=== PATIENT | female | born 1970 | race Caucasian/White ===

== ENCOUNTER 2019-07-16 12:48 | Emergency (ER) | payer OTHER ==
--- NOTE | 2019-07-16 13:01 | PDOC ---
Rapid Medical Evaluation Chief Complaint: Pain Time Seen by Provider: 07/16/19 12:59 Medical Evaluation: 07/16/19 12:59 I have performed a brief in-person evaluation of this patient. The patient presents with a chief complaint of: back pain, LLQ abd pain Pertinent physical exam findings: uncomfortable appearing, LLQ tenderness I have ordered the following: labs, urine The patient will proceed to the ED for further evaluation. Discharge Disposition - Diagnosis Abdominal pain, Back pain - Referrals - Patient Instructions - Post Discharge Activity
[2019-07-16 13:02] VITALS: TEMP 98.9; BMI 26.6
[2019-07-16 15:14] LABS: BASO % 1.3 % (0-2.0); EOS % 0.6 % (0-4.5); HEMOGLOBIN 14.7 GM/dL (10.7-15.3); LYMPH % 18.3 % (8-40); MCH 28.9 pg (25.7-33.7); MCHC 34.1 g/dl (32.0-36.0); MEAN CELL VOLUME 84.7 fl (80-96); MEAN PLT VOLUME 8.8 fl (7.5-11.1); MONO % 5.6 % (3.8-10.2); NEUT % 74.2 % (42.8-82.8); PLATELET COUNT 333 K/MM3 (134-434); RBC 5.08 M/mm3 (3.60-5.2); RDW 13.7 % (11.6-15.6); WHITE BLOOD COUNT 14.9 K/mm3 (4.0-10.0)
[2019-07-16 15:18] LABS: EPI CELLS 0.9 /HPF (0-5/HPF); HYALINE CASTS 1 /lpf (0-8); URINE APPEARANCE CLEAR; URINE BACTERIA 4.1 /hpf (NEGATIVE); URINE BILIRUBIN NEGATIVE (NEGATIVE); URINE COLOR YELLOW; URINE GLUCOSE (UA) NEGATIVE (NEGATIVE); URINE KETONE TRACE (NEGATIVE); URINE LEUK ESTERASE NEGATIVE (NEGATIVE); URINE NITRITE NEGATIVE (NEGATIVE); URINE PROTEIN NEGATIVE (NEGATIVE); URINE RBC 6 /hpf (0-4); URINE UROBILINOGEN 0.2 mg/dL (0.2-1.0); URINE WBC 0 /hpf (0-5)
[2019-07-16 15:39] LABS: ALBUMIN 3.8 g/dl (3.4-5.0); BILIRUBIN,TOTAL 0.7 mg/dL (0.2-1); BLOOD UREA NITROGEN 9.7 mg/dL (7-18); CALCIUM 9.2 mg/dL (8.5-10.1); CREATININE 0.7 mg/dL (0.55-1.3); TOT PROT 7.7 g/dl (6.4-8.2)
--- NOTE | 2019-07-16 18:24 | PDOC ---
History of Present Illness - General Chief Complaint: Pain Stated Complaint: LOWER BACK PAIN Time Seen by Provider: 07/16/19 12:59 History Source: Patient Exam Limitations: No Limitations - History of Present Illness Travel History: No Initial Comments: 07/16/19 17:19 49 y/o female presents to ED with complaints of left lower quadrant pain radiating to her left back for the past month. Patient denies fever, chills, nausea, vomiting but states intermittent constipation and mild dysuria. Patient states history of 2 Herniated disc in her lumbar region and states she believes the pain is from her back Timing/Duration: reports: intermittent Quality: reports: moderate, cramping Abdominal Pain Onset Location: reports: LLQ Pain Radiation: reports: flank, back Activities at Onset: reports: none Aggravating Factors: improves with: Movement Alleviating Factors: improves with: None Past History - Travel Traveled outside of the country in the last 30 days: No Close contact w/someone who was outside of country & ill: No - Past Medical History Allergies/Adverse Reactions: Allergies Allergy/AdvReac Type Severity Reaction Status Date / Time ibuprofen [From Advil] Allergy Verified 07/16/19 13:02 COPD: No - Surgical History Abdominal Surgery: Yes (hernia) - Suicide/Smoking/Psychosocial Hx Smoking History: Never smoked Information on smoking cessation initiated: No Hx Alcohol Use: No Drug/Substance Use Hx: No Patient Lives Alone: No Lives with/in: spouse/SO Abd/GI Specific PMHX - Complaint Specific PMHX Colitis: No Diverticulitis: No Review of Systems - Review of Systems Able to Perform ROS?: Yes Constitutional: No: Symptoms Reported HEENTM: No: Symptoms Reported Respiratory: No: Symptoms reported Cardiac (ROS): No: Symptoms Reported ABD/GI: Yes: Abdominal cramping : No: Symptoms Reported Musculoskeletal: Yes: Back Pain Integumentary: No: Symptoms Reported Neurological: No: Symptoms reported Endocrine: No: Symptoms Reported Hematologic/Lymphatic: No: Symptoms Reported *Physical Exam - Vital Signs Last Vital Signs Temp Pulse Resp BP Pulse Ox 98.9 F 72 19 121/74 97 07/16/19 12:59 07/16/19 12:59 07/16/19 12:59 07/16/19 12:59 07/16/19 12:59 - Physical Exam General Appearance: Yes: Nourished, Appropriately Dressed. No: Apparent Distress Neck: positive: Supple. negative: Tender midline Respiratory/Chest: positive: Lungs Clear, Normal Breath Sounds. negative: Chest Tender, Respiratory Distress, Accessory Muscle Use Cardiovascular: positive: Regular Rhythm, Regular Rate. negative: Murmur Gastrointestinal/Abdominal: positive: Normal Bowel Sounds, Soft, Tenderness ( left upper quadrant left flank left lower quadrant mild left suprapubic). negative: Distended, Guarding, Rebound, Hernia, Mass Musculoskeletal: negative: CVA Tenderness Extremity: positive: Normal Inspection Integumentary: positive: Normal Color, Warm Neurologic: positive: Motor Strength 5/5 (ambulatory) ED Treatment Course - LABORATORY CBC & Chemistry Diagram: 07/16/19 15:00 07/16/19 15:00 - ADDITIONAL ORDERS Additional order review: Laboratory Results 07/16/19 07/16/19 07/16/19 15:08 15:00 15:00 Sodium 137 Potassium 4.0 Chloride 102 Carbon Dioxide 25 Anion Gap 11 BUN 9.7 Creatinine 0.7 Est GFR (CKD-EPI)AfAm 117.91 Est GFR (CKD-EPI)NonAf 101.74 Random Glucose 88 Calcium 9.2 Total Bilirubin 0.7 AST 17 ALT 22 Alkaline Phosphatase 73 Total Protein 7.7 Albumin 3.8 Lipase 82 Serum , Qual Negative Urine Color Yellow Urine Appearance Clear Urine pH 5.0 Ur Specific [place] 1.017 Urine Protein Negative Urine Glucose (UA) Negative Urine Ketones Trace H Urine Blood Trace Urine Nitrite Negative Urine Bilirubin Negative Urine Urobilinogen 0.2 Ur Leukocyte Esterase Negative Urine WBC (Auto) 0 Urine RBC (Auto) 6 Urine Casts (Auto) 1 U Epithel Cells (Auto) 0.9 Urine Bacteria (Auto) 4.1 07/16/19 15:00 RBC 5.08 MCV 84.7 MCHC 34.1 RDW 13.7 MPV 8.8 Neutrophils % 74.2 Lymphocytes % 18.3 Monocytes % 5.6 Eosinophils % 0.6 Basophils % 1.3 - RADIOLOGY Radiology Studies Ordered: Category Date Time Status ABDOMEN & PELVIS CT W/O CONTR [CT] Stat CT Scan 07/16/19 17:22 Ordered - Medications Given in the ED: ED Medications Discontinued Medications Generic Name Dose Route Start Last Admin Trade Name Freq PRN Reason Stop Dose Admin Oxycodone/Acetaminophen 1 combo 07/16/19 17:22 07/16/19 17:25 Percocet 5/325 - PO 07/16/19 17:23 1 combo ONCE ONE Administration Medical Decision Making - Medical Decision Making 07/16/19 17:24 Chief complaint: Left abdominal pain for the past month worsened with movement patient has no complaints of saddle anesthesia or incontinence but does state intermittent constipation and mild dysuria. Exam: Left suprapubic discomfort radiating to left flank and left upper quadrant region vital signs stable Plan: Labs done in [facility] urine collected will add on abdominal CT and serum since patient still menstruate 07/16/19 18:26 Laboratory Tests 07/16/19 07/16/19 07/16/19 15:00 15:00 15:00 WBC 14.9 H Hgb 14.7 Hct 43.0 Absolute Neuts (auto) 11.1 H Sodium 137 Potassium 4.0 Chloride 102 Carbon Dioxide 25 Anion Gap 11 Calcium 9.2 Total Bilirubin 0.7 AST 17 ALT 22 Alkaline Phosphatase 73 Total Protein 7.7 Albumin 3.8 Lipase 82 Serum , Qual Urine Ketones Trace H Urine Nitrite Negative Urine Bilirubin Negative Ur Leukocyte Esterase Negative 07/16/19 15:08 WBC Hgb Hct Absolute Neuts (auto) Sodium Potassium Chloride Carbon Dioxide Anion Gap Calcium Total Bilirubin AST ALT Alkaline Phosphatase Total Protein Albumin Lipase Serum , Qual Negative Urine Ketones Urine Nitrite Urine Bilirubin Ur Leukocyte Esterase *DC/Admit/Observation/Transfer Diagnosis at time of Disposition: Abdominal pain, Back pain - Referrals - Patient Instructions - Post Discharge Activity
--- NOTE | 2019-07-16 20:36 | PDOC ---
*Physical Exam - Vital Signs Last Vital Signs Temp Pulse Resp BP Pulse Ox 98.9 F 72 19 121/74 97 07/16/19 12:59 07/16/19 12:59 07/16/19 12:59 07/16/19 12:59 07/16/19 12:59 - Physical Exam General Appearance: Yes: Appropriately Dressed ED Treatment Course - LABORATORY CBC & Chemistry Diagram: 07/16/19 15:00 07/16/19 15:00 - ADDITIONAL ORDERS Additional order review: Laboratory Results 07/16/19 07/16/19 07/16/19 15:08 15:00 15:00 Sodium 137 Potassium 4.0 Chloride 102 Carbon Dioxide 25 Anion Gap 11 BUN 9.7 Creatinine 0.7 Est GFR (CKD-EPI)AfAm 117.91 Est GFR (CKD-EPI)NonAf 101.74 Random Glucose 88 Calcium 9.2 Total Bilirubin 0.7 AST 17 ALT 22 Alkaline Phosphatase 73 Total Protein 7.7 Albumin 3.8 Lipase 82 Serum , Qual Negative Urine Color Yellow Urine Appearance Clear Urine pH 5.0 Ur Specific [place] 1.017 Urine Protein Negative Urine Glucose (UA) Negative Urine Ketones Trace H Urine Blood Trace Urine Nitrite Negative Urine Bilirubin Negative Urine Urobilinogen 0.2 Ur Leukocyte Esterase Negative Urine WBC (Auto) 0 Urine RBC (Auto) 6 Urine Casts (Auto) 1 U Epithel Cells (Auto) 0.9 Urine Bacteria (Auto) 4.1 07/16/19 15:00 RBC 5.08 MCV 84.7 MCHC 34.1 RDW 13.7 MPV 8.8 Neutrophils % 74.2 Lymphocytes % 18.3 Monocytes % 5.6 Eosinophils % 0.6 Basophils % 1.3 - RADIOLOGY Radiology Studies Ordered: Category Date Time Status TRANSVAGINAL ULTRASOUND US [US] Stat Ultrasound 07/16/19 19:27 Completed - Medications Given in the ED: ED Medications Discontinued Medications Generic Name Dose Route Start Last Admin Trade Name Freq PRN Reason Stop Dose Admin Oxycodone/Acetaminophen 1 combo 07/16/19 17:22 07/16/19 17:25 Percocet 5/325 - PO 07/16/19 17:23 1 combo ONCE ONE Administration Medical Decision Making - Medical Decision Making 07/16/19 21:13 CTAP: large fibroid TVUS: Left ovary left adnexal mass could represent a pedunculated uterine fibroid. discussed with radiologist reports no abscess, case discussed with Dr. stevenson patient to follow up with paper coating supervisor *DC/Admit/Observation/Transfer Diagnosis at time of Disposition: Abdominal pain Qualifiers: Abdominal location: generalized Qualified Code(s): R10.84 - Generalized abdominal pain Back pain Qualifiers: Back pain location: low back pain Chronicity: chronic Back pain laterality: unspecified Sciatica presence: without sciatica Qualified Code(s): M54.5 - Low back pain; G89.29 - Other chronic pain - Discharge Dispostion Disposition: HOME - Prescriptions Prescriptions: Oxycodone HCl/Acetaminophen [Percocet 5-325 mg Tablet] 1 tab PO Q6H PRN #7 tablet MDD 4 PRN Reason: Pain - Referrals - Patient Instructions Printed Discharge Instructions: Uterine Fibroids Additional Instructions: please follow up with paper coating supervisor as soon as possible. take percocet as prescribed return to the ER for any worsening symptoms - Post Discharge Activity Forms/Work/School Notes: Back to Work
[2019-07-16 21:26] VITALS: BP 124/67; PULSE 75
== END 2019-07-16 21:26 | disposition home or self-care (01) ==
LOC: JER 12:48
DX: R10.84 Generalized abdominal pain (principal); M54.5 Low back pain; G89.29 Other chronic pain; Z88.6 Allergy status to analgesic agent
CPT/HCPCS: 36415; 74176-TC; 76830-TC; 80053; 81003; 83690; 84703; 85025; 87077; 87086; 99283-25